=== PATIENT | male | born 1965 | race Caucasian/White ===

== ENCOUNTER 2021-07-27 05:34 | Day surgery (SDC) | payer OTHER, SELFPAY ==
[~2021-07-27] VITALS: Ht 172.7 cm; Wt 80.3 kg
[2021-07-27] MEDS ORDERED: METOCLOPRAMIDE 10 MG/2 ML INJ VIAL ONE (07:33)
[2021-07-27] MEDS ORDERED: PROPOFOL 200 MG/20 ML VIAL IV ONE (07:33)
[2021-07-27] MEDS ORDERED: DEXAMETHASONE 4 MG/ML VIAL ONE (07:33)
[2021-07-27] MEDS ORDERED: LIDOCAINE MPF 2% 100 MG/5 ML VIAL INJ ONE (07:33)
[2021-07-27] MEDS ORDERED: KETAMINE 500 MG/5 ML VIAL ONE (07:34)
[2021-07-27] MEDS ORDERED: MIDAZOLAM 2 MG/2 ML VIAL ONE (07:35)
[2021-07-27] MEDS ORDERED: MEPERIDINE 25 MG/ML SYR IVP PRN (07:45)
[2021-07-27] MEDS ORDERED: ONDANSETRON 4 MG/2 ML VIAL IVP PRN (07:45)
[2021-07-27] MEDS ORDERED: fentaNYL citrate 0.05 MG/ML VIAL IVP PRN (07:45)
[2021-07-27] MEDS ORDERED: LACTATED RINGERS 1,000 ML IV SCH (07:45)
[2021-07-27] MEDS ORDERED: diphenhydrAMINE 50 MG/ML VIAL IVP PRN (07:45)
== END 2021-07-27 09:50 | disposition home or self-care (01) ==
LOC: MDS 05:34 → MMU 05:56 → MDS 09:50
PROVIDERS: ATTEND Internal Medicine Gastroenterology
DX: C25.9 Malignant neoplasm of pancreas, unspecified (principal); R16.0 Hepatomegaly, not elsewhere classified
CPT/HCPCS: 43260; 71045; 76700; 87426; J1100; J2001; J2250; J2704; J2765; Q0092